=== PATIENT | female | born 1975 | race Caucasian/White ===

== ENCOUNTER 2018-03-21 17:14 | Inpatient (IN) | payer OTHER, MEDICAID, SELFPAY ==
[2018-03-21 17:36] VITALS: BP 160/106; PULSE 86; RESP 20; TEMP 36.8; O2SAT 100
[2018-03-21 19:44] VITALS: BP 155/111; PULSE 100; RESP 18; O2SAT 100
--- NOTE | 2018-03-21 20:13 | ED_ITS ---
HPI - Abdominal Pain General Chief Complaint: Abdominal Pain Stated Complaint: STATES PANCREATITIS FLARE Time Seen by Provider: 03/21/18 20:12 Source: patient Mode of arrival: ambulatory Limitations: no limitations History of Present Illness HPI narrative: Patient is a 42-year-old female who presents with abdominal pain. She has a history of pancreatitis from alcohol. She says that her last 2 weeks she has had increased alcohol intake. For the last 2-3 days she is having increasing abdominal pain she has not been eating solid foods but drinking off liquid she feels nauseated. Pain radiates up her periumbilical region to her breast. She denies chest pain or shortness of breath. No heart palpitations. The pain has gotten worse. She did take hydrocodone yesterday to help with the pain but nothing today. She has not had any alcohol for the last 4 days. MD complaint: abdominal pain Related Data Home Medications Medication Instructions Recorded Confirmed No Known Home Medications 03/22/18 03/22/18 Review of Systems Review of Systems GENERAL: Denies chills, fatigue, malaise, fever, sweats, travel HEENT: Denies sinus pain, ear pain, sore throat, difficulty swallowing, neck pain RESPIRATORY: Denies dyspnea, cough, wheezing, hemoptysis, sputum. CARDIOVASCULAR: Denies chest pain, palpitations, orthopnea, edema GASTROINTESTINAL: See HPI : Denies dysuria, frequency, incontinence, hematuria, urinary retention, flank pain. MUSCULOSKELETAL: Denies weakness, joint pain, or bony pain SKIN: No rash, no erythema, no pruritus NEUROLOGIC: Denies weakness, dizziness, headache, numbness, change in speech, confusion PSYCHIATRIC: Alcohol abuse. 12 point review of systems is negative except for those stated above and HPI PFSH Medical History Pancreatitis (Acute) Social History household members: friend(s) Smoking Status: Never smoker alcohol intake: current Exam Initial Vital Signs Initial Vital Signs: Vital Signs Temperature 98.2 F 03/21/18 17:36 Pulse Rate 86 03/21/18 17:36 Respiratory Rate 20 03/21/18 17:36 Blood Pressure 160/106 H 03/21/18 17:36 Pulse Oximetry 100 03/21/18 17:36 GENERAL: Well-appearing, well-nourished and in no acute distress. HEENT: Head atraumatic,EOMI, pupils reactive, face symmetric, moist mucous membranes CARDIOVASCULAR: Regular rate and rhythm without murmurs, rubs or gallops. RESPIRATORY: Breath sounds equal bilaterally, no wheezes rales or rhonchi. ABDOMEN: Soft, tender periumbilical region no guarding no rebound no right upper quadrant pain : No CVA tenderness EXTREMITIES: Normal range of motion, no clubbing or edema. Neurovascularly intact NEUROLOGICAL: Alert and oriented x4.Normal gait and speech. Cranial nerves II through XII grossly intact. SKIN: Warm, dry, no laceration, no petechiae, no rashes or lesions. Course Orders Ordered: ED Orders 03/21/18 20:55 Complete Blood Count AUTO DIFF Stat Lactate (Lactic Acid) Stat 03/21/18 21:37 Comprehensive Metabolic Panel Stat Lipase Stat 03/21/18 22:25 CT abdomen pelvis w con Stat 03/22/18 00:15 Consult to Physician Routine 03/22/18 06:00 Basic Metabolic Panel Stat Complete Blood Count AUTO DIFF Stat Lactated Ringer's (Lactated Ringers) 1,000 mls @ 200 mls/hr IV CONT [facility] Last Admin: 03/22/18 00:45 Dose: 200 mls/hr Morphine Sulfate (Morphine Product Manufacturing Professional) 30 mg in 30 mls @ 0 mls/hr IV PRN PRN PRN Reason: Pain, Moderate (4-6) Ketorolac Tromethamine (Toradol) 30 mg IV Q6H PRN PRN Reason: Pain, Moderate (4-6) Stop: 03/27/18 00:35 Last Admin: 03/22/18 01:16 Dose: 30 mg Naloxone HCl (Narcan) 0.2 mg IV Q2MIN PRN PRN Reason: Opiate Reversal Ondansetron HCl (Zofran) 4 mg IV Q4H PRN PRN Reason: Nausea And Vomiting Discontinued Medications Sodium Chloride (Normal Saline 0.9%) 1,000 mls @ 1,000 mls/hr IV CONT KAYLYN Last Infusion: 03/21/18 22:33 Dose: 0 mls/hr Admin: 03/21/18 21:08 Dose: 1,000 mls/hr Sodium Chloride (Normal Saline 0.9%) 1,000 mls @ 1,000 mls/hr IV BOLUS ONE Stop: 03/21/18 23:24 Last Admin: 03/21/18 23:42 Dose: Lactated Ringer's (Lactated Ringers) 1,000 mls @ 1,000 mls/hr IV BOLUS ONE Stop: 03/21/18 23:41 Last Infusion: 03/22/18 00:00 Dose: 1,000 mls/hr Admin: 03/21/18 23:24 Dose: 1,000 mls/hr Ketorolac Tromethamine (Toradol) 30 mg IV NOW ONE Stop: 03/21/18 20:19 Last Admin: 03/21/18 21:07 Dose: 30 mg Morphine Sulfate (Morphine) 4 mg IV NOW ONE Stop: 03/21/18 22:41 Last Admin: 03/21/18 23:26 Dose: 4 mg Morphine Sulfate (Morphine) 4 mg IV Q4H PRN PRN Reason: Pain, Moderate (4-6) Ondansetron HCl (Zofran) 4 mg IV NOW ONE Stop: 03/21/18 20:19 Last Admin: 03/21/18 21:08 Dose: 4 mg Pantoprazole Sodium (Protonix) 40 mg IV NOW ONE Stop: 03/21/18 20:19 Last Admin: 03/21/18 21:08 Dose: 40 mg Consultations Consultation #1: Dr. Conner has been updated on symptoms and test results. Agrees with admission. Vital Signs - 8 hr 03/22/18 00:10 03/22/18 00:16 03/22/18 03:30 Temperature 97.8 F 98.1 F Pulse Rate 81 82 80 Respiratory Rate 16 16 17 Blood Pressure 147/108 H 151/96 H Blood Pressure [Right Arm] 155/99 H Pulse Oximetry 100 100 99 MDM - Abdominal Pain Lab Data Attestation: I reviewed the patient's lab results. Anion gap of 19. Lactic acid 1.2 Result diagrams: 03/21/18 20:55 03/21/18 21:37 Lab Results 03/21/18 03/21/18 03/21/18 Range/Units 20:55 20:55 21:37 WBC 9.2 (4.5-11.0) X10^3/uL RBC 4.68 (4.0-5.2) X10^6/uL Hgb 15.8 (12.0-16.0) g/dL Hct 45.9 (36-46) % MCV 98.0 (80-100) fL MCH 33.7 (26-34) PG MCHC 34.4 (30-36) % RDW 13.2 (11.6-14.8) % Plt Count 157 (150-400) X10^3/uL Neut % (Auto) 89.2 H (50-75) % Lymph % (Auto) 4.8 L (25-40) % [place] % (Auto) 5.7 (3-14) % Eos % (Auto) 0.1 L (2-4) % Baso % (Auto) 0.2 (0-2) % Neut # (Auto) 8200 H (9129-0238) /uL Sodium 130 L (137-145) mmol/L Potassium 4.6 (3.4-5.1) mmol/L Chloride 97 L (98-107) mmol/L Carbon Dioxide 14 L (22-32) mmol/L BUN 4 L (7-17) mg/dL Creatinine 0.50 L (0.52-1.04) mg/dL Estimated GFR > 60.0 (>60) mL/min BUN/Creatinine Ratio 8.0 (6-22) Glucose 117 H (70-100) mg/dL Lactate 1.2 (0.7-2.1) mmol/L Calcium 9.1 (8.4-10.2) mg/dL Total Bilirubin 0.7 (0.2-1.3) mg/dL AST 44 H (14-36) IU/L ALT 65 H (9-52) IU/L Alkaline Phosphatase 76 (38-126) U/L Total Protein 7.8 (6.3-8.2) g/dL Albumin 4.2 (3.5-5.0) g/dL Globulin 3.6 (1.7-4.1) g/dL Albumin/Globulin Ratio 1.2 (1.0-2.8) Lipase 3836 H (23-300) U/L Point of care testing: Point of Care Testing Test Results Negative Urine Dip Bedside Urine Glucose Negative Bedside Urine Bilirubin - Negative Bedside Urine Ketone +/- 5 Urine Specific [place] 1.030 Bedside Urine Occult Blood +/- Bedside Urine pH 5.5 Bedside Urine Protein +/- 15 Bedside Urine Urobilinogen - Negative Bedside Urine Nitrite - Negative Bedside Urine Leukocytes - Negative Esterase Imaging Data CT scan - abdomen: Radiologist's impression: shift lab technician report: Findings consistent with acute pancreatitis. No fluid collections are identified. Findings suggestive of fatty infiltration of liver. Diverticulosis. Hiatal hernia. MDM Narrative Medical decision making narrative: Patient does have a metabolic acidosis with a mild anion gap. She is also dehydrated and has been on a liquid diet for the last 2 days. She does not have an elevated all bilirubin and no right upper quadrant pain I do not think that this pancreatitis is from his gallstones. CT also revealed normal gallbladder and normal biliary tree. CT does not show any evidence of pancreatic necrosis or infection. She has no leukocytosis or fever. She is feeling much better after Toradol and morphine for pain and she is on her 2nd L of IV fluids in the ED. Or days without any alcohol she is not showing any sign of alcohol withdrawal at this time. No history of alcohol withdrawal or seizures. Discharge Plan Departure Patient Disposition: Admitted As Inpatient Clinical Impression: Pancreatitis Discharge Date/Time: 03/22/18 00:24 Interventions: ED Discharge Assessment Last Done: 03/22/18 00:22 Admit Date/Time: 03/21/18 23:58 Admit Provider: Sid Conner
[2018-03-21 21:05] LABS: Add Manual Diff / Slide Review NO; Basophils Percent Auto 0.2 % (0-2); Eosinophils Percent Auto 0.1 % (2-4); Hematocrit 45.9 % (36-46); Hemoglobin 15.8 g/dL (12.0-16.0); Lymphocytes Percent Auto 4.8 % (25-40); Mean Corpuscular HGB Conc 34.4 % (30-36); Mean Corpuscular Hemoglobin 33.7 PG (26-34); Monocytes Percent Auto 5.7 % (3-14); Neutrophils Absolute Auto 8200 /uL (3000-5900); Neutrophils Percent Auto 89.2 % (50-75); Platelet Count 157 X10^3/uL (150-400); Red Blood Cell Count 4.68 X10^6/uL (4.0-5.2); Red Cell Distribution Width 13.2 % (11.6-14.8); White Blood Cell Count 9.2 X10^3/uL (4.5-11.0)
[2018-03-21] MEDS: KETOROLAC 60 MG/2 ML VIAL 30 MG IV (21:07)
[2018-03-21] MEDS: ONDANSETRON 4 MG/2 ML INJ IV (21:08)
[2018-03-21] MEDS: SODIUM CHLORIDE 0.9% 1,000 ML 1000 ML IV (21:08)
[2018-03-21] MEDS: PANTOPRAZOLE 40 MG VIAL IV (21:08)
[2018-03-21 22:09] LABS: Alanine Aminotransferase 65 IU/L (9-52); Albumin 4.2 g/dL (3.5-5.0); Albumin Globulin Ratio 1.2 (1.0-2.8); Alkaline Phosphatase 76 U/L (38-126); Aspartate Aminotransferase 44 IU/L (14-36); Bilirubin Total 0.7 mg/dL (0.2-1.3); Blood Urea Nitrogen 4 mg/dL (7-17); Calcium 9.1 mg/dL (8.4-10.2); Carbon Dioxide 14 mmol/L (22-32); Chloride 97 mmol/L (98-107); Estimated Glomerular Filt Rate > 60.0 mL/min (>60); Globulin 3.6 g/dL (1.7-4.1); Glucose 117 mg/dL (70-100); HEMOLYSIS < 15 (0-50); Potassium 4.6 mmol/L (3.4-5.1); Sodium 130 mmol/L (137-145); Total Protein 7.8 g/dL (6.3-8.2)
[2018-03-21 22:16] LABS: Lipase 3836 U/L (23-300)
--- NOTE | 2018-03-21 22:25 | DI.CT.S_ITS ---
PROCEDURE: CT ABDOMEN PELVIS W CON INDICATIONS: pancreatitis TECHNIQUE: After the administration of intravenous contrast, 5 mm thick sections acquired from the diaphragm to the symphysis. 5 mm coronal and sagittal reformats were acquired. For radiation dose reduction, the following was used: automated exposure control, adjustment of mA and/or kV according to patient size. COMPARISON: None. FINDINGS: Image quality: Excellent. ABDOMEN: Lung bases: Lung bases are clear. Heart size is normal. There is a moderate-sized hiatal hernia. Solid organs: There is peripancreatic stranding and trace amount of peripancreatic fluid consistent with pancreatitis. Decreased enhancement in pancreatic tail is noted. There is no pancreatic duct dilation. No pancreatic calcification or pseudocyst. Diffuse hepatic fatty infiltration is present. Liver is normal in size and enhancement. Gallbladder is normal. Biliary system is non dilated. Spleen is normal in size and enhancement. No adrenal nodules. Kidneys demonstrate normal size and enhancement, without hydronephrosis. Peritoneum and bowel: Bowel loops demonstrate normal wall thickness and caliber. There are scattered colonic diverticula. No evidence for acute diverticulitis. No free fluid or air. Nodes and vessels: No retroperitoneal or mesenteric adenopathy by size criteria. Aorta and inferior vena cava are normal in size. Miscellaneous: Small fat-containing umbilical hernia. PELVIS: Genitourinary: Bladder wall thickness is normal. Uterus is normal. There is a dominant left ovarian follicle. Ovaries are otherwise unremarkable. No pathologic free fluid in cul-de-sac. Miscellaneous: No inguinal adenopathy. Bilateral fat containing inguinal hernias are noted. Bones: No suspicious bony lesions. No vertebral body compression fractures. Degenerative changes in lumbar spine. IMPRESSION: 1. Acute pancreatitis. 2. There is decreased enhancement in the area of pancreatic tail, likely related to acute pancreatitis (pancreatic necrosis); a mass is, however, not excluded. Followup CT using pancreatic protocol after resolution of acute pancreatitis is recommended. There is no pancreatic duct dilation. 3. Severe hepatic steatosis. 4. Diverticulosis without acute diverticulitis. 5. Moderate sized hiatal hernia. Dictated by: Gabriela Sousa M.D. on 03/22/2018 at 8:22 Approved by: Gabriela Sousa M.D. on 03/22/2018 at 8:32
[2018-03-21 22:52] LABS: Lactate (Lactic Acid) 1.2 mmol/L (0.7-2.1)
[2018-03-21] MEDS: LACTATED RINGERS 1,000 ML 1000 ML IV (23:24)
[2018-03-21] MEDS: MORPHINE 4 MG/ML INJ IV (23:26)
[2018-03-22] VITALS (8 sets, daily range): BP systolic 128–155; BP diastolic 87–108; PULSE 78–98; RESP 16–17; TEMP 36.4–37.4; O2SAT 94–100; BMI 25.9
--- NOTE | 2018-03-22 | DI.US.S_ITS ---
PROCEDURE: US ABDOMEN COMPLETE INDICATIONS: PAIN TECHNIQUE: Real-time scanning was performed of the abdominal and retroperitoneal organs, with image documentation. COMPARISON: [facility], CT, CT ABDOMEN PELVIS W CON, 03/21/2018, 22:35. FINDINGS: Liver: Liver is normal in size and demonstrates diffuse increased echotexture. Gallbladder: No gallstones. No gallbladder wall thickening, pericholecystic fluid or sonographic Corral's sign. Biliary ducts: Intrahepatic bile ducts are non-dilated. Extrahepatic bile duct caliber measures 7.8 mm. Normal is 6-7 mm or less in diameter, or 10 mm or less post-cholecystectomy. Pancreas: Pancreas is obscured by overlying bowel gas. Spleen: Spleen is normal in size and homogeneous in echotexture. Kidneys: Kidneys are normal in size and echotexture. Right kidney measures 11.2 cm long; left kidney measures 11.1 cm long. No hydronephrosis or nephrolithiasis. No solid masses. Aorta: Visualized aorta is normal in caliber at less than 3 cm. Iliacs: Proximal common iliac arteries are obscured outlined. IVC: Intrahepatic inferior vena cava is patent. Miscellaneous: No free abdominal fluid. IMPRESSION: 1. Diffusely increased hepatic echotexture. This finding is most likely secondary to hepatic fatty infiltration although other hepatocellular disease may have a similar appearance. Recommend clinical correlation. 2. Normal gallbladder. No gallstones. 3. Dilated common bile duct. Please correlate with serum bilirubin for bile duct obstruction. 4. Pancreas obscured by overlying bowel gas. Dictated by: Gabriela Sousa M.D. on 03/22/2018 at 11:26 Approved by: Gabriela Sousa M.D. on 03/22/2018 at 11:28
--- NOTE | 2018-03-22 00:22 | PC.NURSE ---
per provider patient ok to go up without telemetry.
[2018-03-22] MEDS: LACTATED RINGERS 1,000 ML 200 ML IV ×5 (00:45→21:33)
[2018-03-22] MEDS: KETOROLAC 30 MG/ML VIAL IV ×3 (01:16→21:58)
[2018-03-22 05:39] LABS: Add Manual Diff / Slide Review NO; Basophils Percent Auto 0.2 % (0-2); Eosinophils Percent Auto 0.6 % (2-4); Hematocrit 40.7 % (36-46); Hemoglobin 13.8 g/dL (12.0-16.0); Mean Corpuscular HGB Conc 33.9 % (30-36); Mean Corpuscular Hemoglobin 33.5 PG (26-34); Monocytes Percent Auto 9.4 % (3-14); Neutrophils Absolute Auto 5700 /uL (3000-5900); Neutrophils Percent Auto 76.8 % (50-75); Platelet Count 142 X10^3/uL (150-400); Red Blood Cell Count 4.11 X10^6/uL (4.0-5.2); Red Cell Distribution Width 13.2 % (11.6-14.8); White Blood Cell Count 7.5 X10^3/uL (4.5-11.0)
[2018-03-22 05:43] LABS: Blood Urea Nitrogen 3 mg/dL (7-17); Calcium 8.8 mg/dL (8.4-10.2); Carbon Dioxide 20 mmol/L (22-32); Chloride 101 mmol/L (98-107); Estimated Glomerular Filt Rate > 60.0 mL/min (>60); Glucose 103 mg/dL (70-100); HEMOLYSIS < 15 (0-50); Potassium 4.2 mmol/L (3.4-5.1); Sodium 134 mmol/L (137-145)
[2018-03-22] MEDS: MORPHINE PCA 30 MG/30 ML PCA.VIAL IV (06:55)
--- NOTE | 2018-03-22 07:31 | PC.NURSE ---
Pt was admitted to unit as AxOx3, VSS, appearing in no acute distress or pain. Pain stated she was having 9/10 pain and wanting toradol and/or morphine. Pt had just received toradol and morphine ED right before coming up to the floor. I called Dr. Conner for a toradol order and about more pain meds. Dr. Conner ordered the toradol as well as a Morphine OUTSOLE BEVELER pump. Pt used 14mg during my shift; when asked abt her pain level in the morning she said much better, maybe a 3 or 4. Then during bedside report when the oncoming nurse asked how her pain was she said it was a 7/10. IVF running as ordered at LR@200mL/hr. Independent of ADL's. Voiding well. Kept NPO. Tele showing NSR. No nausea
[2018-03-22 08:46] LABS: Lipase 3466 U/L (23-300)
--- NOTE | 2018-03-22 11:57 | PC.NURSE ---
Pt BP elevated 142/105 and rechecked 10mins later at 143/103. Dr. Reza notified. No new orders at this time.
[2018-03-22] MEDS: ONDANSETRON 4 MG/2 ML INJ IV (12:57)
[2018-03-22] MEDS: HYDROMORPHONE 0.5 MG INJ IV ×3 (14:29→23:21)
--- NOTE | 2018-03-22 16:16 | CM.IDA ---
DCP Assessment Note/ D/A Assessment: Pt is is 42 yo female, resident of [place]. Pt admitted for acute pancreatitis although no H+P available at this time, its 1615. Pt's PCP was in [facility], per pt, she hopes to transition to someone in [place] soon. Pt's Insurance is [facility] Medicaid. Met w/.pt this afternoon, she was eager to hear from the doctor to know whats going on and next steps in POC. Discussed pt's h/o heavy alcohol use (per chart notes). 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 She lives w/roommates that drink heavily and republican daily. Most of her friends bartend. Pt understands that she needs to make huge life adjustments in order to be sober and states I've been going through a mid life crisis type of thing this year. Pt states she had a counselor in [facility] that was helpful, no specifics given, pt feels she can contact this person again if needed for support . Pt hopes to start seeing a counselor at [facility] soon. Pt is indp and functional at baseline and plans to leave the hospital as soon as she can in order to make it to work tomorrow. Pt denies the need for any treatment/sobriety resources, contact information etc. Pt appreciative of the visit and states no further SW needs. RADHA Moses Discharge Planning/Care Management CM Discharge Assessment Start: 03/22/18 08:41 Freq: Status: Active Protocol: Document 03/22/18 08:41 INDY (Rec: 03/22/18 08:45 INDY [id number]) Discharge Planning Assessment Assigned Heel Slicker INDY History Provided By Patient Medical Record Has Patient been admitted in last 30 No days? Is this patient on Medicare? No Prior Living Arrangements House Household Members friend(s) Independent with ADL's Yes Is patient alert and oriented? Yes Comment Heavy alcohol use. Will benefit from D/A assessment. No s/sx of w/d at this time. Additional Comment Pending further assessment. Review Status In Process Next Review Type Discharge Review
[2018-03-22] MEDS: PANTOPRAZOLE 40 MG VIAL IV (17:40)
--- NOTE | 2018-03-22 20:49 | PM.HP.1 ---
History of Present Illness Date Patient Seen: 03/22/18 Time Patient Seen: 17:50 Chief complaint: STATES PANCREATITIS FLARE Narrative: Patient is a 42 years of age female who is experiencing her 5th episode of acute pancreatitis in the past 12-18 months. Patient notes that she was not a alcoholic in the past but in the past year or so she has certainly been drinking alcohol excessively. Patient notes that she has history of depression and last treated with antidepressant over 5 years ago. Patient has on been on various medications such as Zoloft Celexa or Prozac. Patient did not seem to favor considering antidepressant medication again. Patient notes she has a mother father and 5 siblings with history of depression. 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 Patient notes that the onset of the pain was approximately 3 days ago. Pain is described as sharp in the epigastric area. There is associated nausea and vomiting. Patient consequently came to the emergency room on her 3rd day of his discomfort to seek care. Patient History Medical History Pancreatitis (Acute) Comment: Past medical history Four previous episodes of acute pancreatitis in the past 12-18 months Alcoholism over the past 12-18 months History of depression with medication treatment over the past years up until 5 years ago Family history Patient's mother father and 5 siblings with history of depression Family & Social History Family History: Reviewed 03/22/18 by Dawood Reza MD Social History: household members friend(s) Prior Living Arrangements House Safety & Behavioral: Feels Safe in Current Yes Environment Been Physically Hurt or No Threatened By a Person Suicidal Ideation Description None Suicide Plan Description No Plan Tobacco & Substance use: Smoking Status Never smoker alcohol intake current alcohol intake frequency other Substance Use Type marijuana Meds Home Medications Medication Instructions Recorded Confirmed Type No Known Home Medications 03/22/18 03/22/18 History Review of Systems Review of Systems A 10 point review of system was negative apart from the symptoms as described with epigastric pain nausea vomiting no fever no chills no chest pain or shortness of breath Exam Vital Signs (past 8 hours): - 03/22/18 15:39 03/22/18 20:11 Temperature 97.6 F 98.2 F Pulse Rate 98 H 86 Respiratory Rate 16 16 Blood Pressure 143/94 H 128/87 H Pulse Oximetry 95 97 Oxygen Delivery Method Room Air Oxygen Flow Rate 0 Narrative Exam Narrative: General appearance Awake and alert no apparent distress at rest at this time Psychiatric Oriented to self place and time. Mood is reasonably pleasant. Affect is normal. Skin No rashes or lesions nonjaundiced Eyes Pupils are equal round and reactive to light Ears nose and throat Hearing grossly intact nose with septum to midline no bleeding no oral pharyngeal lesions dentition is good Respiratory Clear to auscultation with no wheezes no crackles good airflow Cardiovascular Regular in rate and rhythm no murmurs rubs or gallops GI Tenderness noted epigastric region to palpation positive bowel sounds are noted no guarding no distention no bruits Neurologic No focal neurologic changes. Cranial nerves 2-12 grossly intact Lymph nodes no lymphadenopathy to neck or axilla Musculoskeletal strength 5/5 no clubbing range of motion normal Objective Labs Result Diagrams: 03/22/18 05:15 03/22/18 05:15 Labs: Laboratory Results - last 24 hr 03/21/18 03/21/18 03/21/18 20:55 20:55 21:37 WBC 9.2 RBC 4.68 Hgb 15.8 Hct 45.9 MCV 98.0 MCH 33.7 MCHC 34.4 RDW 13.2 Plt Count 157 Neut % (Auto) 89.2 H Lymph % (Auto) 4.8 L [place] % (Auto) 5.7 Eos % (Auto) 0.1 L Baso % (Auto) 0.2 Neut # (Auto) 8200 H Sodium 130 L Potassium 4.6 Chloride 97 L Carbon Dioxide 14 L BUN 4 L Creatinine 0.50 L Estimated GFR > 60.0 BUN/Creatinine Ratio 8.0 Glucose 117 H Lactate 1.2 Calcium 9.1 Total Bilirubin 0.7 AST 44 H ALT 65 H Alkaline Phosphatase 76 Total Protein 7.8 Albumin 4.2 Globulin 3.6 Albumin/Globulin Ratio 1.2 Lipase 3836 H 03/22/18 03/22/18 05:15 05:15 WBC 7.5 RBC 4.11 Hgb 13.8 Hct 40.7 MCV 99.0 MCH 33.5 MCHC 33.9 RDW 13.2 Plt Count 142 L Neut % (Auto) 76.8 H Lymph % (Auto) 13.0 L [place] % (Auto) 9.4 Eos % (Auto) 0.6 L Baso % (Auto) 0.2 Neut # (Auto) 5700 Sodium 134 L Potassium 4.2 Chloride 101 Carbon Dioxide 20 L BUN 3 L Creatinine 0.50 L Estimated GFR > 60.0 BUN/Creatinine Ratio 6.0 Glucose 103 H Lactate Calcium 8.8 Total Bilirubin AST ALT Alkaline Phosphatase Total Protein Albumin Globulin Albumin/Globulin Ratio Lipase 3466 H Assessment & Plan Plan: Assessment/Plan Narrative: 1. Acute pancreatitis Patient meets criteria for acute pancreatitis with a lipase level that exceeds 3 times the upper limits of normal for this lab along with epigastric discomfort and tenderness on exam Note this is patient's 5th episode of pancreatitis in the past 12-18 months. The cause of the pancreatitis it appears is alcohol induced. Patient receiving analgesic therapy IV fluids and antiemetic therapy as necessary. I requested an ultrasound to further investigate the pancreas and evaluate the biliary tree and gallbladder. Note the liver enzymes are elevated likely reflective of the alcohol abuse. Lipase on admission was 3836. 2. Alcoholism I had a discussion with the patient regarding her alcohol abuse history. Patient did not appear to be easily acknowledging her alcohol abuse. She does note that in her roommates that she boards and shares a home with tend to constitution party too much and drink too much. 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 She has been meditating and doing yoga and seemingly finding of methods apart from the usual in custom measures. No alcoholic anonymous is being considered. 3. History of depression I have offered patient to resume her antidepressant but she feels that this is not necessary. Will defer this discussion to a later time if patient which is discussed at that time instead. Discharge planning Patient appears in 10 on being discharged tomorrow. I have explained to her that if she does not appear stable clinically for discharge she would have to leave against medical advice. Time spent with patient 70 min
--- NOTE | 2018-03-22 21:05 | P.HP_ITS ---
History of Present Illness Date Patient Seen: 03/22/18 Time Patient Seen: 17:50 Chief complaint: STATES PANCREATITIS FLARE Narrative: Patient is a 42 years of age female who is experiencing her 5th episode of acute pancreatitis in the past 12-18 months. Patient notes that she was not a alcoholic in the past but in the past year or so she has certainly been drinking alcohol excessively. Patient notes that she has history of depression and last treated with antidepressant over 5 years ago. Patient has on been on various medications such as Zoloft Celexa or Prozac. Patient did not seem to favor considering antidepressant medication again. Patient notes she has a mother father and 5 siblings with history of depression. 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 and notes that she has lots of friends around her that seemed to libertarian readily and it makes it easy for her to drink too much. Patient notes that the onset of the pain was approximately 3 days ago. Pain is described as sharp in the epigastric area. There is associated nausea and vomiting. Patient consequently came to the emergency room on her 3rd day of his discomfort to seek care. Patient History Medical History Pancreatitis (Acute) Comment: Past medical history Four previous episodes of acute pancreatitis in the past 12-18 months Alcoholism over the past 12-18 months History of depression with medication treatment over the past years up until 5 years ago Family history Patient's mother father and 5 siblings with history of depression Family & Social History Family History: Reviewed 03/22/18 by Dawood Reza MD Social History: household members friend(s) Prior Living Arrangements House Safety & Behavioral: Feels Safe in Current Yes Environment Been Physically Hurt or No Threatened By a Person Suicidal Ideation Description None Suicide Plan Description No Plan Tobacco & Substance use: Smoking Status Never smoker alcohol intake current alcohol intake frequency other Substance Use Type marijuana Meds Home Medications Medication Instructions Recorded Confirmed Type No Known Home Medications 03/22/18 03/22/18 History Review of Systems Review of Systems A 10 point review of system was negative apart from the symptoms as described with epigastric pain nausea vomiting no fever no chills no chest pain or shortness of breath Exam Vital Signs (past 8 hours): - 03/22/18 15:39 03/22/18 20:11 Temperature 97.6 F 98.2 F Pulse Rate 98 H 86 Respiratory Rate 16 16 Blood Pressure 143/94 H 128/87 H Pulse Oximetry 95 97 Oxygen Delivery Method Room Air Oxygen Flow Rate 0 Narrative Exam Narrative: General appearance Awake and alert no apparent distress at rest at this time Psychiatric Oriented to self place and time. Mood is reasonably pleasant. Affect is normal. Skin No rashes or lesions nonjaundiced Eyes Pupils are equal round and reactive to light Ears nose and throat Hearing grossly intact nose with septum to midline no bleeding no oral pharyngeal lesions dentition is good Respiratory Clear to auscultation with no wheezes no crackles good airflow Cardiovascular Regular in rate and rhythm no murmurs rubs or gallops GI Tenderness noted epigastric region to palpation positive bowel sounds are noted no guarding no distention no bruits Neurologic No focal neurologic changes. Cranial nerves 2-12 grossly intact Lymph nodes no lymphadenopathy to neck or axilla Musculoskeletal strength 5/5 no clubbing range of motion normal Objective Labs Result Diagrams: 03/22/18 05:15 03/22/18 05:15 Labs: Laboratory Results - last 24 hr 03/21/18 03/21/18 03/21/18 20:55 20:55 21:37 WBC 9.2 RBC 4.68 Hgb 15.8 Hct 45.9 MCV 98.0 MCH 33.7 MCHC 34.4 RDW 13.2 Plt Count 157 Neut % (Auto) 89.2 H Lymph % (Auto) 4.8 L [place] % (Auto) 5.7 Eos % (Auto) 0.1 L Baso % (Auto) 0.2 Neut # (Auto) 8200 H Sodium 130 L Potassium 4.6 Chloride 97 L Carbon Dioxide 14 L BUN 4 L Creatinine 0.50 L Estimated GFR > 60.0 BUN/Creatinine Ratio 8.0 Glucose 117 H Lactate 1.2 Calcium 9.1 Total Bilirubin 0.7 AST 44 H ALT 65 H Alkaline Phosphatase 76 Total Protein 7.8 Albumin 4.2 Globulin 3.6 Albumin/Globulin Ratio 1.2 Lipase 3836 H 03/22/18 03/22/18 05:15 05:15 WBC 7.5 RBC 4.11 Hgb 13.8 Hct 40.7 MCV 99.0 MCH 33.5 MCHC 33.9 RDW 13.2 Plt Count 142 L Neut % (Auto) 76.8 H Lymph % (Auto) 13.0 L [place] % (Auto) 9.4 Eos % (Auto) 0.6 L Baso % (Auto) 0.2 Neut # (Auto) 5700 Sodium 134 L Potassium 4.2 Chloride 101 Carbon Dioxide 20 L BUN 3 L Creatinine 0.50 L Estimated GFR > 60.0 BUN/Creatinine Ratio 6.0 Glucose 103 H Lactate Calcium 8.8 Total Bilirubin AST ALT Alkaline Phosphatase Total Protein Albumin Globulin Albumin/Globulin Ratio Lipase 3466 H Assessment & Plan Plan: Assessment/Plan Narrative: 1. Acute pancreatitis Patient meets criteria for acute pancreatitis with a lipase level that exceeds 3 times the upper limits of normal for this lab along with epigastric discomfort and tenderness on exam Note this is patient's 5th episode of pancreatitis in the past 12-18 months. The cause of the pancreatitis it appears is alcohol induced. Patient receiving analgesic therapy IV fluids and antiemetic therapy as necessary. I requested an ultrasound to further investigate the pancreas and evaluate the biliary tree and gallbladder. Note the liver enzymes are elevated likely reflective of the alcohol abuse. Lipase on admission was 3836. 2. Alcoholism I had a discussion with the patient regarding her alcohol abuse history. Patient did not appear to be easily acknowledging her alcohol abuse. She does note that in her roommates that she boards and shares a home with tend to libertarian too much and drink too much. 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 She has been meditating and doing yoga and seemingly finding of methods apart from the usual in custom measures. No alcoholic anonymous is being considered. 3. History of depression I have offered patient to resume her antidepressant but she feels that this is not necessary. Will defer this discussion to a later time if patient which is discussed at that time instead. Discharge planning Patient appears in 10 on being discharged tomorrow. I have explained to her that if she does not appear stable clinically for discharge she would have to leave against medical advice. Time spent with patient 70 min
[2018-03-23 00:06] VITALS: BP 125/82; RESP 16; TEMP 36.7; O2SAT 98
[2018-03-23] MEDS: LACTATED RINGERS 1,000 ML 200 ML IV ×2 (03:00→07:46)
[2018-03-23] MEDS: HYDROMORPHONE 0.5 MG INJ IV ×2 (03:00→05:30)
[2018-03-23 03:50] VITALS: BP 132/89; PULSE 88; RESP 18; TEMP 36.7; O2SAT 94
[2018-03-23 05:39] LABS: Add Manual Diff / Slide Review NO; Basophils Percent Auto 0.5 % (0-2); Eosinophils Percent Auto 1.9 % (2-4); Hemoglobin 12.2 g/dL (12.0-16.0); Lymphocytes Percent Auto 17.7 % (25-40); Mean Corpuscular HGB Conc 34.8 % (30-36); Mean Corpuscular Hemoglobin 33.9 PG (26-34); Mean Corpuscular Volume 97.3 fL (80-100); Monocytes Percent Auto 12.8 % (3-14); Neutrophils Absolute Auto 3300 /uL (3000-5900); Neutrophils Percent Auto 67.1 % (50-75); Platelet Count 111 X10^3/uL (150-400); Red Cell Distribution Width 13.2 % (11.6-14.8)
[2018-03-23 05:54] LABS: Alanine Aminotransferase 43 IU/L (9-52); Albumin 3.2 g/dL (3.5-5.0); Albumin Globulin Ratio 1.1 (1.0-2.8); Alkaline Phosphatase 58 U/L (38-126); Aspartate Aminotransferase 30 IU/L (14-36); BUN Creatinine Ratio 7.5 (6-22); Bilirubin Total 0.8 mg/dL (0.2-1.3); Blood Urea Nitrogen 3 mg/dL (7-17); Calcium 8.5 mg/dL (8.4-10.2); Carbon Dioxide 23 mmol/L (22-32); Chloride 99 mmol/L (98-107); Estimated Glomerular Filt Rate > 60.0 mL/min (>60); Globulin 2.8 g/dL (1.7-4.1); Glucose 89 mg/dL (70-100); HEMOLYSIS < 15 (0-50); Lipase 577 U/L (23-300); Potassium 3.3 mmol/L (3.4-5.1); Sodium 134 mmol/L (137-145)
[2018-03-23 08:14] VITALS: BP 146/90; PULSE 88; RESP 16; TEMP 36.8; O2SAT 97
--- NOTE | 2018-03-23 11:02 | PC.NURSE ---
Addendum entered by Indu Moreira R.N. 03/23/18 12:50: Tolerated lunch well. Clarified with MD, no specific follow up needed at this time. Reviewed discharge instructions with pt, including s/sx warranting call to MD. Pt states she will advance diet slowly as tolerated. Original Note: shift note Met with pt at beginning of shift. Pt requesting dilaudid (pain 1-2/10) and wanting to discharge today. Discussed pt's pain and pain management. Pt agreeable to holding on dilaudid. No pain reported at 1050. Dr. Reza notiifed on lipase. Pt tolerating pudding, applesauce, per MD order for full liquid diet. No N/V or abdominal pain reported.
[2018-03-23 12:37] VITALS: BP 135/95; PULSE 78; RESP 18; TEMP 36.7; O2SAT 98
--- NOTE | 2018-03-23 15:55 | P.DS_ITS ---
History of Present Illness Date Patient Seen: 03/23/18 Time Patient Seen: 11:49 Chief complaint: STATES PANCREATITIS FLARE Narrative: Patient is a 42 years of age female who is experiencing her 5th episode of acute pancreatitis in the past 12-18 months. Patient notes that she was not a alcoholic in the past but in the past year or so she has certainly been drinking alcohol excessively. Patient notes that she has history of depression and last treated with antidepressant over 5 years ago. Patient has on been on various medications such as Zoloft Celexa or Prozac. Patient did not seem to favor considering antidepressant medication again. Patient notes she has a mother father and 5 siblings with history of depression. 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 Patient notes that the onset of the pain was approximately 3 days ago. Pain is described as sharp in the epigastric area. There is associated nausea and vomiting. Patient consequently came to the emergency room on her 3rd day of his discomfort to seek care. Discharge Providers Date of admission: 03/21/18 23:58 Consults: 03/22/18 00:15 Consult to Physician Routine Comment: Consulting Provider: Sid Conner Reason for consultation: admission Has provider been notified: Yes Discharge provider: Dawood Reza MD Summary Discharge Diagnosis: 1. Acute pancreatitis secondary to alcohol abuse note this is patient's 5th episode of pancreatitis in the past 12-18 months related to alcoholism 2. Nausea and vomiting secondary to 1. Resolved during hospital course 3. Alcoholism as noted. 4. Depression Hospital Course: Patient is a 42 years of age female that presents with nausea and vomiting and epigastric discomfort on admission. Patient's lipase level was over 3800 on admission. Epigastric pain noted. The epigastric pain with a lipase level greater than 3 times the upper limits of normal for hospitals lipase level meet criteria for acute pancreatitis. I spoke to the patient about her alcoholism and her depression history. She appeared to be a bit guarded and hesitant to discuss this more fully. She did admit that this was her 5th episode of pancreatitis in the past year or so. She was last on antidepressant about 5 years ago. She appears to recall taking different medications such as Celexa Zoloft or Prozac in the past. She feels confident that she can handle her depression without an antidepressant. She has been relying upon meditation and yoga and other means of management choices. In a.m. today patient's abdomen was softer she was anxious for discharge today. We stop the narcotic and started full liquid diet. I discussed with her how she was doing at lunchtime with her meal. She was ready to be discharged. She understands to be cautious regarding her diet for the next week or so. Antiemetic and analgesic therapy to be provided at discharge. Status at Discharge Cognitive/behavioral status at discharge: Patient is awake and alert no apparent distress well oriented with good cognition mood is pleasant affect is appropriate Functional status at discharge: independent ambulation Time Spent with Patient Greater than 30 minutes Exam Vital Signs (past 8 hours): - 03/23/18 08:14 03/23/18 12:37 Temperature 98.2 F 98.1 F Pulse Rate 88 78 Respiratory Rate 16 18 Blood Pressure 146/90 H 135/95 H Pulse Oximetry 97 98 Oxygen Delivery Method Room Air Oxygen Flow Rate 0 Narrative Exam Narrative: Patient has noted awake and alert no apparent distress anxious for discharge well oriented Respiratory Lungs are clear to auscultation no wheezes no crackles Cardiovascular Regular rate rhythm no murmurs GI Less tenderness noted to palpation to the abdomen in the epigastric area positive bowel sounds are noted no guarding no distension Objective Labs Result Diagrams: 03/23/18 05:14 03/23/18 05:14 Labs: Laboratory Results - last 24 hr 03/23/18 03/23/18 05:14 05:14 WBC 5.0 RBC 3.60 L Hgb 12.2 Hct 35.0 L MCV 97.3 MCH 33.9 MCHC 34.8 RDW 13.2 Plt Count 111 L Neut % (Auto) 67.1 Lymph % (Auto) 17.7 L [place] % (Auto) 12.8 Eos % (Auto) 1.9 L Baso % (Auto) 0.5 Neut # (Auto) 3300 Sodium 134 L Potassium 3.3 L Chloride 99 Carbon Dioxide 23 BUN 3 L Creatinine 0.40 L Estimated GFR > 60.0 BUN/Creatinine Ratio 7.5 Glucose 89 Calcium 8.5 Total Bilirubin 0.8 AST 30 ALT 43 Alkaline Phosphatase 58 Total Protein 6.0 L Albumin 3.2 L Globulin 2.8 Albumin/Globulin Ratio 1.1 Lipase 577 H D Discharge Plan Discharge Plan Patient Disposition: Home, Self-Care Discharge comment: As requested by patient. Patient was discharged to home today. Patient was started on full liquid diet this morning and provided at lunch as well. Patient tolerated her meal intake well. The narcotics were discontinued this morning. Patient was tolerating the meals without the medication. The lipase level had come down considerably from 3800 to 500 this morning. Patient notes that her abdomen is much less in discomfort. She is anxious for discharge Provider Discharge Instructions Diet: Diet as Tolerated and Full Liquid Wound Care Report to your healthcare provider any signs of infection, such as:: chills, fever, night sweats, increased pain and unusual drainage Discharge Data Attending Provider: Sid Conner Admit Date/Time: 03/21/18 23:58 Discharges patient from system. Discharge Date/Time: 03/23/18 12:53
== END 2018-03-23 12:53 | disposition home or self-care (01) | DRG 282 ==
LOC: ED 23:07 → AC 23:59
PROVIDERS: Internal Medicine; Admitting Provider Internal Medicine; Emergency Provider Emergency Medicine; Visit Provider Internal Medicine
DX: K85.20 Alcohol induced acute pancreatitis without necrosis or infection (principal); F10.20 Alcohol dependence, uncomplicated; F32.9 Major depressive disorder, single episode, unspecified
CPT/HCPCS: 36415; 36591; 74177; 76700; 80048; 80053; 81003; 81025; 83605; 83690; 85025; 96361; 96374; 96375; 99283; 99285; C9113; J1170; J1885; J2270; J2405; Q9967